=== PATIENT | female | born 1990 | race Caucasian/White ===

== ENCOUNTER 2019-02-23 05:55 | Inpatient (IN) | payer OTHER, MEDICAID ==
[2019-02-23] MEDS ORDERED: LACTATED RINGER'S 1,000 ML IV (07:03)
[2019-02-23] MEDS ORDERED: CARBOPROST 250 MCG INJ IM (07:30)
[2019-02-23] MEDS ORDERED: MISOPROSTOL 200 MCG TAB PR (07:30)
[2019-02-23] MEDS ORDERED: IBUPROFEN 600 MG TAB PO (07:30)
[2019-02-23] MEDS ORDERED: LIDOCAINE 1% (MPF) 30 ML INJ INJ (07:30)
[2019-02-23] MEDS ORDERED: OXYTOCIN 30 UNITS/LR 500 ML IV ×2 (07:30)
[2019-02-23] MEDS ORDERED: METHYLERGONOVINE 0.2 MG INJ IM (07:30)
[2019-02-23] MEDS: CLINDAMYCIN 900 MG/D5W (PMX) 50 ML IVPB (08:56)
[2019-02-23] MEDS: LACTATED RINGER'S 1,000 ML IV ×2 (08:56→14:24)
[2019-02-23] MEDS: MISOPROSTOL 50 MCG CAPSULE PO ×3 (09:04→17:07)
[2019-02-23 09:39] LABS: ADD MAN DIFF? NO
[2019-02-23 09:50] LABS: BASOPHILS % 0.4 % (0.0-2.0); EOSINOPHILS # 0.3 10^3/ul (0.0-0.5); EOSINOPHILS % 2.9 % (0.0-7.0); HEMATOCRIT 37.9 % (37.0-47.0); HEMOGLOBIN 12.4 g/dl (12.0-16.0); LYMPHOCYTES # 1.9 10^3/ul (0.8-2.9); LYMPHOCYTES % 21.1 % (15.0-51.0); MEAN CORPUSCULAR HEMOGLOBIN 31.8 pg (29.0-33.0); MEAN CORPUSCULAR HGB CONC 32.7 g/dl (32.0-37.0); MEAN CORPUSCULAR VOLUME 97.2 fl (82.0-101.0); MONOCYTE # 0.9 10^3/ul (0.3-0.9); MONOCYTES % 10.1 % (0.0-11.0); NEUTROPHIL # 5.8 10^3/ul (1.6-7.5); NEUTROPHILS % 65.1 % (39.0-77.0); PLATELET COUNT 148 10^3/UL (140-415); RED CELL DISTRIBUTION WIDTH 13.2 % (11.5-14.5)
[2019-02-23 09:50] LABS: WHITE BLOOD COUNT 8.9 10^3/ul (4.8-10.8)
[2019-02-23 10:09] LABS: INR 0.85; PROTIME 11.7 Sec (11.9-14.9); PT RATIO 0.9
[2019-02-23 10:10] LABS: PARTIAL THROMBOPLASTIN TIME 26.4 Sec (23.0-35.0)
[2019-02-23 11:57] LABS: HEPATITIS B SURFACE ANTIGEN NEGATIVE (NEGATIVE)
[2019-02-23] MEDS: CLINDAMYCIN 600 MG/D5W (PMX) 50 ML IVPB (17:10)
[2019-02-23 19:29] LABS: RAPID PLASMA REAGIN NONREACTIVE (NR)
[2019-02-24] MEDS: MISOPROSTOL 50 MCG CAPSULE PO ×4 (00:13→13:00)
[2019-02-24] MEDS ORDERED: AL HYDROX/MG HYDROX/SIMETH 30 ML CUP PO (00:30)
[2019-02-24] MEDS: LACTATED RINGER'S 1,000 ML IV ×2 (01:06→04:42)
[2019-02-24] MEDS: CLINDAMYCIN 600 MG/D5W (PMX) 50 ML IVPB ×2 (01:06→06:41)
[2019-02-24] MEDS ORDERED: FENTAnyl 2MCG/ML-ROPIV 0.2% 100 ML (04:44)
[2019-02-24] MEDS ORDERED: DIPHENHYDRAMINE 50 MG INJ IV ×2 (05:00→11:30)
[2019-02-24] MEDS ORDERED: FENTAnyl 2MCG/ML-ROPIV 0.2% 100 ML BAG EPI (05:00)
[2019-02-24] MEDS ORDERED: NALOXONE (0.4 MG/ML) INJ IV (05:00)
[2019-02-24] MEDS ORDERED: ONDANSETRON 4 MG INJ IV ×2 (05:00→11:30)
[2019-02-24] MEDS: OXYTOCIN 30 UNITS/LR 500 ML IV ×2 (05:45→11:10)
[2019-02-24] MEDS ORDERED: ONDANSETRON 4 MG TAB PO (11:30)
[2019-02-24] MEDS ORDERED: CARBOPROST 250 MCG INJ IM (11:30)
[2019-02-24] MEDS ORDERED: MISOPROSTOL 200 MCG TAB PR (11:30)
[2019-02-24] MEDS ORDERED: HYDROCODONE/APAP (5/325) TAB PO ×2 (11:30)
[2019-02-24] MEDS ORDERED: METHYLERGONOVINE 0.2 MG INJ IM (11:30)
[2019-02-24] MEDS ORDERED: OXYTOCIN 30 UNITS/LR 500 ML IV (11:30)
[2019-02-24] MEDS ORDERED: DIPHENHYDRAMINE 25 MG CAP PO (11:30)
[2019-02-24] MEDS ORDERED: ACETAMINOPHEN 325 MG TAB PO ×2 (11:30)
[2019-02-24] MEDS ORDERED: MAGNESIUM HYDROXIDE 30ML CUP PO (11:30)
[2019-02-24] MEDS ORDERED: SENNA/DOCUSATE NA (8.6MG/50MG) TAB PO (11:30)
[2019-02-24] MEDS: IBUPROFEN 800 MG TAB PO ×3 (13:20→23:56)
[2019-02-24] MEDS: WITCH HAZEL/GLYCERIN PAD PR (13:21)
[2019-02-24] MEDS: LANOLIN HPA 1 PKT TOP (13:21)
[2019-02-24] MEDS: DIBUCAINE 1% 30 GM OINT TOP (13:21)
[2019-02-24] MEDS: BENZOCAINE 20% 56 ML SPRAY TOP (13:21)
[2019-02-24] MEDS: LACTATED RINGER'S 1,000 ML IV* (15:17)
[2019-02-25 05:08] LABS: ADD MAN DIFF? NO
[2019-02-25 05:15] LABS: ABNORMAL IP MESSAGE 1; BASOPHIL # 0.1 10^3/ul (0.0-0.1); BASOPHILS % 0.5 % (0.0-2.0); EOSINOPHILS # 0.2 10^3/ul (0.0-0.5); EOSINOPHILS % 2.2 % (0.0-7.0); HEMATOCRIT 35.5 % (37.0-47.0); HEMOGLOBIN 11.8 g/dl (12.0-16.0); LYMPHOCYTES # 1.9 10^3/ul (0.8-2.9); LYMPHOCYTES % 18.9 % (15.0-51.0); MEAN CORPUSCULAR HEMOGLOBIN 31.7 pg (29.0-33.0); MEAN CORPUSCULAR HGB CONC 33.2 g/dl (32.0-37.0); MEAN CORPUSCULAR VOLUME 95.4 fl (82.0-101.0); MEAN PLATELET VOLUME 13.3 fl (7.4-10.4); MONOCYTE # 0.7 10^3/ul (0.3-0.9); NEUTROPHIL # 7.3 10^3/ul (1.6-7.5); NEUTROPHILS % 71.1 % (39.0-77.0); PLATELET COUNT 129 10^3/UL (140-415); RED BLOOD COUNT 3.72 10^6/ul (4.20-5.40); RED CELL DISTRIBUTION WIDTH 13.2 % (11.5-14.5)
[2019-02-25 05:15] LABS: WHITE BLOOD COUNT 10.2 10^3/ul (4.8-10.8)
[2019-02-25 05:18] LABS: POSITIVE DIFF @See below
[2019-02-25] MEDS: IBUPROFEN 800 MG TAB PO ×4 (05:46→23:36)
[2019-02-26] MEDS: IBUPROFEN 800 MG TAB PO (05:42)
[2019-02-26] MEDS: DIPHTH/TET/ACEL PERTUSS (ADULT) 0.5 ML VIAL IM* (09:41)
[2019-02-26] MEDS: VARICELLA VACCINE LIVE/PF 1,350 UNIT/0.5 ML ML SC* (09:42)
[2019-02-26] MEDS: MEASLES,MUMPS,RUBELLA VACCINE INJ SC* (09:42)
== END 2019-02-26 14:19 | disposition home or self-care (01) | DRG 806 ==
LOC: L-D 05:55 → MS1 02-24 13:06 → L-D 14:50
PROVIDERS: Obstetrics & Gynecology
PROC: 10E0XZZ Delivery of Products of Conception, External Approach (ICD-10-PCS; principal; 2019-02-24)
PROC: 0UQGXZZ Repair Vagina, External Approach (ICD-10-PCS; 2019-02-24)
PROC: 3E033VJ Introduction of Other Hormone into Peripheral Vein, Percutaneous Approach (ICD-10-PCS; 2019-02-24)
DX: O48.0 Post-term pregnancy (principal); O71.4 Obstetric high vaginal laceration alone; Z37.0 Single live birth; Z3A.40 40 weeks gestation of pregnancy
CPT/HCPCS: 62322; 76815; 85025; 85610; 85730; 86592; 86850; 86900; 86901; 87340; 90715; 90716